=== PATIENT | female | born 1960 | race Caucasian/White ===

== ENCOUNTER 2018-12-10 12:56 | Emergency (ER) | payer OTHER ==
[2018-12-10 13:05] VITALS: BP 107/78; PULSE 87; BMI 32.3
--- NOTE | 2018-12-10 14:21 | PDOC ---
History of Present Illness - General Chief Complaint: Cold Symptoms Stated Complaint: PAIN IN LUNGS Time Seen by Provider: 12/10/18 13:26 History Source: Patient Exam Limitations: No Limitations - History of Present Illness Initial Comments: 12/10/18 14:30 58 year old female with medical history of asthma, stills disease, and a surgical history tonsillectomy, gastric sleeve, nose, neck tumor resection, cholecystectomey , knee, shoulder and foot surgery presents with reports of upper back pain x 3 months with coughing. Denies fever or chills. States in the last 4 days with greenish phlegm, shortness of breath with activity and upper back pain getting worse. Requesting mri or cat scan for back pain x 3 months. States no pmd and no md visit x 3 months Timing/Duration: other (3 months ) Severity: mild Modifying Factors: improves with: other (no intervention) Associated Symptoms: reports: cough, shortness of breath Aspirin Received prior to arrival: Yes: no aspirin today Asa Contraindications(Core Measure): Yes: Allergy Beta Burton Contraindications(Core Measure): No: Not Prescribed Past History - Travel Traveled outside of the country in the last 30 days: Yes Close contact w/someone who was outside of country & ill: No - Past Medical History Allergies/Adverse Reactions: Allergies Allergy/AdvReac Type Severity Reaction Status Date / Time aspirin Allergy Verified 12/10/18 13:01 shellfish derived Allergy Verified 12/10/18 13:01 animals Allergy Uncoded 12/10/18 13:01 mold Allergy Uncoded 12/10/18 13:01 Home Medications: Ambulatory Orders NK [No Known Home Medication] 12/10/18 Asthma: Yes COPD: No Other medical history: STILL DESEASE - Surgical History Cholecystectomy: Yes Orthopedic Surgery: Yes (bilateral knees) - Immunization History Immunization Up to Date: Yes - Suicide/Smoking/Psychosocial Hx Smoking Status: No Smoking History: Never smoked Number of Cigarettes Smoked Daily: 0 Hx Alcohol Use: No Drug/Substance Use Hx: No Substance Use Type: None Hx Substance Use Treatment: No Review of Systems - Review of Systems Able to Perform ROS?: Yes Is the patient limited Maltese proficient: No Constitutional: No: Chills, Fever, Loss of Appetite HEENTM: No: Nose Congestion, Throat Swelling Respiratory: Yes: Cough, Shortness of Breath, Productive cough. No: Orthopnea Cardiac (ROS): No: Chest Pain, Edema, Irregular Heart Rate, Lightheadedness ABD/GI: No: Abdominal Distended, Constipated, Difficulty Swallowing, Nausea, Indigestion, Abdominal cramping : No: Burning, Incontinence, Testicular Swelling Musculoskeletal: Yes: Back Pain. No: Muscle Pain, Muscle Weakness Integumentary: No: Bruising, Erythema Neurological: No: Headache, Numbness, Tremors Psychiatric: No: Stressors Hematologic/Lymphatic: No: Anemia *Physical Exam - Vital Signs Last Vital Signs Temp Pulse Resp BP Pulse Ox 87 16 107/78 98 12/10/18 13:01 12/10/18 13:01 12/10/18 13:01 12/10/18 13:01 - Physical Exam General Appearance: Yes: Nourished, Appropriately Dressed HEENT: positive: GEORGE. negative: Pharyngeal Erythema, Tonsillar Exudate, Nasal Congestion, Rhinorrhea Neck: negative: Lymphadenopathy (R), Lymphadenopathy (L) Respiratory/Chest: positive: Lungs Clear, Normal Breath Sounds. negative: Chest Tender, Respiratory Distress, Accessory Muscle Use Cardiovascular: positive: Regular Rhythm, Regular Rate, S1, S2 Musculoskeletal: positive: Other (no swelling, rash, bruising noted on upper back, non tender with palpation over ribs or upper back). 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 intact, Fully Oriented, Alert Moderate Sedation - Procedure Monitoring Vital Signs: Procedure Monitoring Vital Signs Temperature Pulse Rate 87 12/10/18 13:01 Respiratory Rate 16 12/10/18 13:01 Blood Pressure 107/78 12/10/18 13:01 O2 Sat by Pulse Oximetry (%) 98 12/10/18 13:01 ED Treatment Course - RADIOLOGY Radiology Studies Ordered: Category Date Time Status CHEST - PA [RAD] Stat Radiology 12/10/18 14:18 Ordered Medical Decision Making - Medical Decision Making 12/10/18 14:40 58 year old female with extensive surgical history has medical history of stills disease and asthma complaining of upper back pain and intermittent cough with greenish phlegm. Plan chest xray analgesia patient signed out AMA, all questions answered, all risk explained witness by [employer] , Nayeli witnessed. Patient stated understanding. *DC/Admit/Observation/Transfer Diagnosis at time of Disposition: Cough Back pain Qualifiers: Back pain location: thoracic back pain Chronicity: chronic Back pain laterality : bilateral Qualified Code(s): M54.6 - Pain in thoracic spine; G89.29 - Other chronic pain - Discharge Dispostion Disposition: AGAINST MEDICAL ADVICE - Referrals - Patient Instructions - Post Discharge Activity
== END 2018-12-10 14:59 | disposition left against medical advice (07) ==
LOC: JERFT 12:56
DX: M54.9 Dorsalgia, unspecified (principal); G89.29 Other chronic pain; R05 Cough; J45.909 Unspecified asthma, uncomplicated; M08.20 Juvenile rheumatoid arthritis with systemic onset, unspecified site
CPT/HCPCS: 99281-25